=== PATIENT | female | born 1995 | race Caucasian/White ===

== ENCOUNTER 2016-11-09 17:12 | Emergency (ER) | payer BC, MEDICAID, OTHER ==
[~2016-11-09] VITALS: Ht 157.5 cm; Wt 78.8 kg
[~2016-11-09 17:12] MED LIST: BENZ100C70 PO; D-ME473S18 PO; IBUP-1542 PO; PREN1TAB49
[2016-11-09 17:13] VITALS: Ht 157.5 cm; Wt 78.8 kg
--- NOTE | 2016-11-09 18:03 | ERD ---
ER Documentation Chief Complaint Date/Time DATE: 11/09/16 TIME: 18:02 Chief Complaint RIGHT BREAST LUMP X 2 DAYS HPI This 21-year-old female presents to emergency department for evaluation of right lateral breast lump with intermitted pain, patient denies any discharge, erythema, reports she has had symptoms for the last 8 months. 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 Has had no exacerbation or change in symptoms came to emergency department today because she keeps forgetting to get it checked out. Patient denies any history of breast cancer in her family. Denies that she drinks coffee or has history of fibrous breast ROS All systems reviewed and are negative except as per history of present illness. Medications Home Meds Active Scripts Ibuprofen* (Ibuprofen*) 600 Mg Tablet, 600 MG PO Q6 for 3 Days, TAB Prov:MARICRUZ JOHNSON 01/06/16 Benzonatate* (Tessalon Perle*) 100 Mg Capsule, 100 MG PO Q8H Y for COUGH for 3 Days, CAP Prov:MARICRUZ JOHNSON 01/06/16 Dextromethorphan Hb-Promethazine Hcl (Promethazine DM Syrup) 473 Ml Syrup, 10 ML PO Q6H Y for COUGH, #4 OZ Prov:MARICRUZ JOHNSON 01/06/16 Ibuprofen* (Motrin*) 600 Mg Tab, 600 MG PO Q6H Y for PAIN AND OR ELEVATED TEMP, #30 Prov:CLAUS KASPER NP 09/18/14 Reported Medications Vits W-Ca,Fe,Fa(<1MG) () 1 Tab Tablet 04/30/12 Allergies Allergies: Coded Allergies: No Known Drug Allergies (Verified Allergy, Mild, 01/06/16) PMhx/Soc Medical and Surgical Hx: pt denies Medical Hx, pt denies Surgical Hx History of Surgery: No Anesthesia Reaction: No Hx Neurological Disorder: No Hx Respiratory Disorders: No Hx Cardiac Disorders: No Hx Psychiatric Problems: No Hx Miscellaneous Medical Probl: No Hx Alcohol Use: Yes (socially) Hx Substance Use: No Hx Tobacco Use: No Smoking Status: Never smoker Physical Exam Vitals Vital Signs Date Time Temp Pulse Resp B/P Pulse Ox O2 Delivery O2 Flow Rate FiO2 11/09/16 17:13 98.2 74 18 135/90 99 Vitals stable, triage notes reviewed Physical Exam Const: Well-nourished well-appearing in no acute distress Head: Atraumatic Eyes: Normal Conjunctiva, PERRLA, EOMI ENT: Normal External Ears, Nose and Mouth, mucous membranes moist. Neck: Full range of motion..~ No meningismus. Resp: Respirations even and unlabored, no respiratory distress Breast exam; contour is smooth, breasts are symmetric without retraction or bulging. There is a palpable mass on right lateral breast between 8 and 9:00. Nipples are everted without discharge, no axillary lymph nodes palpable. Cardio: Regular rate and rhythm, no murmurs Abd: Soft, non tender, non distended. Normal bowel sounds Skin: Back: Ext: Neur: Awake and alert Psych: Normal Mood and Affect Results 24 hrs Current Medications Medications (Trade) Dose Ordered Sig/Shreya Route PRN Reason Start Time Stop Time Status Last Admin Dose Admin Acetaminophen (Tylenol Tab) 650 mg ONCE ONCE PO 11/09/16 18:30 11/09/16 18:31 DC 11/09/16 18:40 Departure Diagnosis: Primary Impression: Breast mass, right Condition: Good Patient Instructions: Breast Mass, Uncertain Cause Referrals: RESPIRATORY CARE INSTRUCTOR REFERRAL LIST Additional Instructions: Thank you for for coming to [facility] for your care today. Please ask your nurse or provider if you have questions about your care today and do not leave until all your questions have been answered. Please use any medications given as directed and follow-up with your doctor (or the doctor you were referred to) in the next 2-3 days. If you do not have a primary care doctor you may follow up at the [facility] [place], [place] (listed below). You may also use motrin and tylenol as needed for fever and/or pain unless instructed otherwise by your provider or nurse. Indications for more urgent follow-up have been discussed, but you may return to the Emergency Department at ANY time for any worrisome or worsening symptoms. If you have abdominal pain, please know that no test or exam you received is perfect and you should follow up within 8 hours for continued pain. If you had any imaging studies today, such as an X-Ray or CT Scan, these studies will be reviewed later by a radiologist. You will be called if there are important findings that were not identified today, so make sure the contact information you provided at registration is correct. If you received any narcotic pain control medicine today, such as Vicodin, Morphine or Dilaudid, your coordination and judgment may be affected for a number of hours. Please do not drive or operate heavy machinery, and you may want someone to assist you at home. If you were given a prescription for narcotic medication, be aware that it is very addictive- use sparingly and only if necessary. DANA MORALES Nov 09, 2016 18:03
[2016-11-09] MEDS ORDERED: ACETAMINOPHEN 325 MG TAB PO ONE (18:30)
--- NOTE | 2016-11-09 19:59 | RADRPT ---
PROCEDURE: Right breast ultrasound. CLINICAL INDICATION: Right breast palpable lesion. TECHNIQUE: High-resolution sonography of the right breast was performed in the axial and sagittal planes. COMPARISON: No prior study is available for comparison. FINDINGS: At the site of the palpable lesion in the right breast 8-9 o'clock position, there is a solid mass m easuring 2.7 x 1.3 x 2.7 cm. The mass has smooth margins. The breast parenchyma is otherwise unremarkable. IMPRESSION: 1. Solid mass measuring 2.7 x 1.3 x 2.7 cm at the site of the palpable lesion in the right breast 8 9 o'clock position. This is probably benign. 2. Any further management regarding the palpable lesion should be based upon clinical grounds. RPTAT: QQ .Blake Cabrera MD, Date Time Electronically viewed and signed by .Blake Cabrera MD, on 11/09/2016 19:58 .R/
== END 2016-11-09 20:51 | disposition home or self-care (01) ==
LOC: FTE 17:12
DX: N63 Unspecified lump in breast (principal)
CPT/HCPCS: 76642; Z7502; Z7610

== ENCOUNTER 2018-01-09 15:50 | Emergency (ER) | END 2018-01-09 21:18 | disposition home or self-care (01) ==

== ENCOUNTER 2018-09-30 09:53 | Emergency (ER) | payer OTHER ==
[~2018-09-30] VITALS: Ht 162.6 cm; Wt 73.4 kg
[~2018-09-30 09:53] MED LIST changes: +ACET500C5 PO; +BENZ-6 PO; -BENZ100C70 PO; +CEPH-443 PO; +METO10TA92 PO
[2018-09-30 09:56] VITALS: Ht 162.6 cm; Wt 73.4 kg
[2018-09-30] MEDS ORDERED: ONDANSETRON (ODT) 4 MG TAB ODT STA (10:40)
[2018-09-30] MEDS ORDERED: IBUP-1542 PO (10:41)
[2018-09-30] MEDS ORDERED: ONDA4TAB14 PO (10:41)
[2018-09-30] MEDS ORDERED: AMOX500C2 PO (10:42)
--- NOTE | 2018-09-30 10:43 | ERD ---
ER Documentation Chief Complaint Chief Complaint SORE THROAT X 3 DAYS HPI 23-year-old female presents the ED for sore throat x3 days. Reports that it is so painful that is difficult for her to eat and sleep. She also reports nasal congestion, rhinorrhea with clear discharge, and nausea and vomiting this morning. She still feels nauseated during her ED stay. Denies any recorded fevers but reports chills and body aches throughout the night. Denies any sick contacts or recent travel. She reports that her sore throat is 6 out of 10 intensity and does not radiate.. Denies any abdominal pain or headaches at this time. Has taken TheraFlu with no relief of her symptoms. ROS All systems reviewed and are negative except as per history of present illness. Medications Home Meds Active Scripts Amoxicillin* (Amoxicillin*) 500 Mg Cap, 500 MG PO BID for 10 Days, CAP Prov:MARIIA DE LA PAZ PA-C 09/30/18 Ibuprofen* (Motrin*) 600 Mg Tab, 600 MG PO Q6H PRN for PAIN AND OR ELEVATED TEMP, #30 TAB Prov:MARIIA DE LA PAZ PA-C 09/30/18 Ondansetron (Ondansetron Odt) 4 Mg Tab.rapdis, 4 MG PO Q6H PRN for NAUSEA AND/OR VOMITING, #10 TAB Prov:MARIIA DE LA PAZ PA-C 09/30/18 Acetaminophen* (Tylophen*) 500 Mg Capsule, 1 CAP PO Q6H PRN for PAIN AND OR ELEVATED TEMP, #20 CAP Prov:GAGAN CARDOZO PA-C 01/09/18 Metoclopramide* (Reglan*) 10 Mg Tablet, 10 MG PO Q6 PRN for NAUSEA AND/OR VOMITING, #10 TAB Prov:GAGAN CARDOZO PA-C 01/09/18 Cephalexin* (Keflex*) 500 Mg Capsule, 500 MG PO QID for 7 Days, CAP Prov:GAGAN CARDOZO PA-C 01/09/18 Ibuprofen* (Ibuprofen*) 600 Mg Tablet, 600 MG PO Q6 for 3 Days, TAB Prov:MARICRUZ JOHNSON 01/06/16 Benzonatate* (Tessalon Perle*) 100 Mg Capsule, 100 MG PO Q8H PRN for COUGH for 3 Days, CAP Prov:MARICRUZ JOHNSON 01/06/16 Dextromethorphan Hb-Promethazine Hcl (Promethazine DM Syrup) 473 Ml Syrup, 10 ML PO Q6H PRN for COUGH, #4 OZ Prov:MARICRUZ JOHNSON 01/06/16 Ibuprofen* (Motrin*) 600 Mg Tab, 600 MG PO Q6H PRN for PAIN AND OR ELEVATED TEMP, #30 Prov:CLAUS KASPER NP 09/18/14 Reported Medications Vits W-Ca,Fe,Fa(<1MG) () 1 Tab Tablet 04/30/12 Allergies Allergies: Coded Allergies: No Known Drug Allergies (Verified Allergy, Mild, 09/30/18) PMhx/Soc History of Surgery: No Anesthesia Reaction: No Hx Neurological Disorder: No Hx Respiratory Disorders: No Hx Cardiac Disorders: No Hx Psychiatric Problems: No Hx Miscellaneous Medical Probl: No Hx Alcohol Use: Yes (socially) Hx Substance Use: No Hx Tobacco Use: No FmHx Family History: No diabetes Physical Exam Vitals Vital Signs Date Temp Pulse Resp B/P (MAP) Pulse Ox O2 O2 Flow FiO2 Time Delivery Rate 09/30/18 99.4 112 16 129/84 97 09:56 (99) Physical Exam Const: No acute distress Head: Atraumatic Eyes: Normal Conjunctiva ENT: Normal External Ears, Nose Mouth: Throat slightly erythematous with no exudates Neck: Full range of motion Resp: Clear to auscultation bilaterally Cardio: Regular rate and rhythm Abd: Soft, non tender, non distended. Skin: No rashes Back: No midline tenderness Ext: No cyanosis, or edema Neur: Awake and alert Psych: Normal Mood and Affect Results 24 hrs Current Medications Medications Dose Sig/Shreya Start Time Status Last (Trade) Ordered Route PRN Stop Time Admin Dose Reason Admin Ondansetron 4 mg ONCE STAT 09/30/18 DC 09/30/18 HCl (Zofran ODT 10:40 10:54 Odt) 09/30/18 10:41 Procedures/MDM ED COURSE: The patient was stable throughout ED course. I kept the patient informed of laboratory and diagnostic imaging results throughout the ED course. MEDICATIONS GIVEN: Zofran Patient tolerated medication well with no adverse reactions. Patient reported improvement in pain. MEDICAL DECISION MAKING: Patient is a 23-year-old female complaining of sore throat x 3 days. Patient's physical exam is consistent with presumed strep pharyngitis. Based on [facility] Criteria, patient has reported feeling warm at home with chills, no cough. Patient is appropriate for outpatient antibiotics. Patient's physical exam include lungs which were clear to auscultation and a normal pulse oximetry. No tenderness to palpation of tragus or mastoid. Low suspicion for mastoiditis, otitis externa, otitis media. Patient is speaking in full sentences. There is a low suspicion for pneumonia, epiglottitis, croup, sinusitis, peritonsillar abscess, hands foot mouth disease, scarlet fever, kawasaki disease, retropharyngeal abscess, meningitis, sepsis, acute abdomen or other emergent conditions. Vital signs were reviewed. Patient is afebrile. Patient was not hypoxic. Patient was hemodynamically stable. PRESCRIPTION: Amoxicillin, Motrin, Zofran DISCHARGE: At this time, patient is stable for discharge and outpatient management. I have instructed the patient to follow-up with his/her primary care physician in 1-2 days. I have discussed with the patient the possibility of needing to see a specialist for further workup and imaging studies if symptoms persist. I have instructed the patient to promptly return to the ER for any new or worsening symptoms including increased pain, fever, nausea, vomiting, weakness or LOC. The patient and/or family expressed understanding of and agreement with this plan. All questions were answered. Home care instructions were provided. Disclaimer: Inadvertent spelling and grammatical errors are likely due to EHR/dictation software use and do not reflect on the overall quality of patient care. Also, please note that the electronic time recorded on this note does not necessarily reflect the actual time of the patient encounter. Departure Diagnosis: Primary Impression: Sore throat Condition: Fair Patient Instructions: Self-Care for Sore Throats Referrals: COMMUNITY CLINICS YOU HAVE RECEIVED A MEDICAL SCREENING EXAM AND THE RESULTS INDICATE THAT YOU DO NOT HAVE A CONDITION THAT REQUIRES URGENT TREATMENT IN THE EMERGENCY DEPARTMENT. FURTHER EVALUATION AND TREATMENT OF YOUR CONDITION CAN WAIT UNTIL YOU ARE SEEN IN YOUR DOCTORS OFFICE WITHIN THE NEXT 1-2 DAYS. IT IS YOUR RESPONSIBILITY TO MAKE AN APPOINTMENT FOR FOLOW-UP CARE. IF YOU HAVE A PRIMARY DOCTOR --you should call your primary doctor and schedule an appointment IF YOU DO NOT HAVE A PRIMARY DOCTOR YOU CAN CALL OUR PHYSICIAN REFERRAL HOTLINE AT IF YOU CAN NOT AFFORD TO SEE A PHYSICIAN YOU CAN CHOSE FROM THE FOLLOWING [facility] [address] [facility] [address] [facility] [address] [facility] [address] [facility] [address] [facility]. [facility] [address] [facility]. [facility] YOU HAVE RECEIVED A MEDICAL SCREENING EXAM AND THE RESULTS INDICATE THAT YOU DO NOT HAVE A CONDITION THAT REQUIRES URGENT TREATMENT IN THE EMERGENCY DEPARTMENT. FURTHER EVALUATION AND TREATMENT OF YOUR CONDITION CAN WAIT UNTIL YOU ARE SEEN IN YOUR DOCTORS OFFICE WITHIN THE NEXT 1-2 DAYS. IT IS YOUR RESPONSIBILITY TO MAKE AN APPOINTMENT FOR FOLOW-UP CARE. IF YOU HAVE A PRIMARY DOCTOR --you should call your primary doctor and schedule and appointment IF YOU DO NOT HAVE A PRIMARY DOCTOR YOU CAN CALL OUR PHYSICIAN REFERRAL HOTLINE AT . IF YOU CAN NOT AFFORD TO SEE A PHYSICIAN YOU CAN CHOSE FROM THE FOLLOWING [facility]: [facility] [address] [place] [address] [facility] [address] [place] [address] [facility] [address] [place] [address] Additional Instructions: Call your primary care doctor TOMORROW for an appointment during the next 1-2 days.See the doctor sooner or return here if your condition worsens before your appointment time. MARIIA DE LA PAZ PA-C Sep 30, 2018 10:43
[2018-09-30 10:58] VITALS: BP 122/74; PULSE 100; RESP 16
== END 2018-09-30 11:00 | disposition home or self-care (01) ==
LOC: FTE 09:53
DX: J02.9 Acute pharyngitis, unspecified (principal)
CPT/HCPCS: Z7502; Z7610; 99283

== ENCOUNTER 2018-11-09 10:31 | Emergency (ER) | payer OTHER ==
[~2018-11-09] VITALS: Ht 160 cm; Wt 80.0 kg
[~2018-11-09 10:31] MED LIST changes: +AMOX500C2 PO; +DICY10CA40 PO; +ONDA4TAB14 PO; +ONDA8TAB14 PO
[2018-11-09 10:33] VITALS: BP 143/80; PULSE 110; RESP 18; Ht 160 cm; Wt 80.0 kg
[2018-11-09] MEDS ORDERED: KETOROLAC 30 MG INJ IV STA (11:06)
[2018-11-09] MEDS ORDERED: ONDANSETRON 4 MG INJ IV STA (11:06)
[2018-11-09] MEDS ORDERED: SOD CHLORIDE 0.9% 1,000 ML IV STA (11:06)
[2018-11-09] MEDS ORDERED: BELLADONNA/PHENOBARBITAL TAB PO STA (11:06)
[2018-11-09] MEDS ORDERED: LIDOCAINE/MYLANTA 40 ML BTL PO STA (11:06)
[2018-11-09] MEDS ORDERED: FAMOTIDINE 20 MG INJ IV STA (11:06)
[2018-11-09] MEDS ORDERED: morphine 2 MG INJ IV STA (11:06)
--- NOTE | 2018-11-09 11:19 | ERD ---
ER Documentation Chief Complaint Chief Complaint AP WITH VOMITING SINCE YESTERDAY HPI 23-year-old female presents with complaint of abdominal pain, diarrhea, vomiting since yesterday. States of abdominal pain is mostly epigastric. Patient denies fevers. Patient is ambulatory. Denies fevers, constipation, hematochezia, hematemesis, biliary emesis, right lower quadrant pain, recent travel, shortness of breath, chest pain, diaphoresis, dysphagia, weight loss, polyuria, diabetes, history of atherosclerosis. ROS All systems reviewed and are negative except as per history of present illness. Medications Home Meds Active Scripts Acetaminophen* (Tylophen*) 500 Mg Capsule, 2 CAP PO Q8H PRN for PAIN AND OR ELEVATED TEMP, #20 CAP Prov:RACIEL RAM 11/09/18 Ondansetron (Ondansetron Odt) 8 Mg Tab.rapdis, 8 MG PO Q6H PRN for NAUSEA AND/OR VOMITING, #10 TAB Prov:RACIEL RAM 11/09/18 Dicyclomine HCl (Dicyclomine HCl) 10 Mg Capsule, 10 MG PO TID PRN for ABDOMINAL CRAMPING, #20 CAP Prov:RACIEL RAM 11/09/18 Amoxicillin* (Amoxicillin*) 500 Mg Cap, 500 MG PO BID for 10 Days, CAP Prov:MARIIA DE LA PAZ PA-C 09/30/18 Ibuprofen* (Motrin*) 600 Mg Tab, 600 MG PO Q6H PRN for PAIN AND OR ELEVATED TEMP, #30 TAB Prov:MARIIA DE LA PAZ PA-C 09/30/18 Ondansetron (Ondansetron Odt) 4 Mg Tab.rapdis, 4 MG PO Q6H PRN for NAUSEA AND/OR VOMITING, #10 TAB Prov:MARIIA DE LA PAZ PA-C 09/30/18 Acetaminophen* (Tylophen*) 500 Mg Capsule, 1 CAP PO Q6H PRN for PAIN AND OR ELEVATED TEMP, #20 CAP Prov:GAGAN CARDOZO PA-C 01/09/18 Metoclopramide* (Reglan*) 10 Mg Tablet, 10 MG PO Q6 PRN for NAUSEA AND/OR VOMITING, #10 TAB Prov:GAGAN CARDOZO PA-C 01/09/18 Cephalexin* (Keflex*) 500 Mg Capsule, 500 MG PO QID for 7 Days, CAP Prov:LOTTIE CARDOZOIE Shannon ALAS 01/09/18 Ibuprofen* (Ibuprofen*) 600 Mg Tablet, 600 MG PO Q6 for 3 Days, TAB Prov:MARICRUZ JOHNSON Arelis 01/06/16 Benzonatate* (Tessalon Perle*) 100 Mg Capsule, 100 MG PO Q8H PRN for COUGH for 3 Days, CAP Prov:MARICRUZ JOHNSON C 01/06/16 Dextromethorphan Hb-Promethazine Hcl (Promethazine DM Syrup) 473 Ml Syrup, 10 ML PO Q6H PRN for COUGH, #4 OZ Prov:MARICRUZ JOHNSON 01/06/16 Ibuprofen* (Motrin*) 600 Mg Tab, 600 MG PO Q6H PRN for PAIN AND OR ELEVATED TEMP, #30 Prov:CLAUS KASPER NP 09/18/14 Reported Medications Vits W-Ca,Fe,Fa(<1MG) () 1 Tab Tablet 04/30/12 Allergies Allergies: Coded Allergies: No Known Drug Allergies (Verified Allergy, Mild, 09/30/18) PMhx/Soc Medical and Surgical Hx: pt denies Medical Hx, pt denies Surgical Hx History of Surgery: No Anesthesia Reaction: No Hx Neurological Disorder: No Hx Respiratory Disorders: No Hx Cardiac Disorders: No Hx Psychiatric Problems: No Hx Miscellaneous Medical Probl: No Hx Alcohol Use: Yes (socially) Hx Substance Use: No Hx Tobacco Use: No Smoking Status: Never smoker FmHx Family History: No diabetes, No coronary disease, No other Physical Exam Vitals Vital Signs Date Temp Pulse Resp B/P (MAP) Pulse Ox O2 O2 Flow FiO2 Time Delivery Rate 11/09/18 98.5 110 18 143/80 99 10:33 (101) Physical Exam Const: No acute distress Head: Atraumatic Eyes: Normal Conjunctiva ENT: Normal External Ears, Nose and Mouth. Neck: Full range of motion. No meningismus. Resp: Clear to auscultation bilaterally Cardio: Regular rate and rhythm, no murmurs Abd: Tenderness palpation upper right quadrant. Otherwise soft, non tender, non distended. Normal bowel sounds. Negative McBurney's. Able to jump up and down. Skin: No petechiae or rashes Back: No midline or flank tenderness Ext: No cyanosis, or edema Neur: Awake and alert Psych: Normal Mood and Affect Result Diagram: 11/09/18 1114 11/09/18 1114 Results 24 hrs Laboratory Tests Test 11/09/18 11:14 11/09/18 11:22 White Blood Count 12.7 10^3/ul Red Blood Count 4.60 10^6/ul Hemoglobin 15.4 g/dl Hematocrit 45.5 % Mean Corpuscular Volume 98.9 fl Mean Corpuscular Hemoglobin 33.5 pg Mean Corpuscular Hemoglobin Concent 33.8 g/dl Red Cell Distribution Width 11.6 % Platelet Count 243 10^3/UL Mean Platelet Volume 10.6 fl Immature Granulocytes % 0.200 % Neutrophils % 79.7 % Lymphocytes % 12.6 % Monocytes % 5.5 % Eosinophils % 1.8 % Basophils % 0.2 % Nucleated Red Blood Cells % 0.0 /100WBC Immature Granulocytes # 0.030 10^3/ul Neutrophils # 10.2 10^3/ul Lymphocytes # 1.6 10^3/ul Monocytes # 0.7 10^3/ul Eosinophils # 0.2 10^3/ul Basophils # 0.0 10^3/ul Nucleated Red Blood Cells # 0.0 10^3/ul Urine Color YELLOW Urine Clarity CLEAR Urine pH 5.0 Urine Specific [place] 1.016 Urine Ketones NEGATIVE mg/dL Urine Nitrite NEGATIVE mg/dL Urine Bilirubin NEGATIVE mg/dL Urine Urobilinogen NEGATIVE mg/dL Urine Leukocyte Esterase NEGATIVE [place]/ul Urine Microscopic RBC 1 /HPF Urine Microscopic WBC 1 /HPF Urine Hemoglobin 3+ mg/dL Urine Glucose NEGATIVE mg/dL Urine Total Protein NEGATIVE mg/dl Sodium Level 143 mmol/L Potassium Level 4.0 mmol/L Chloride Level 105 mmol/L Carbon Dioxide Level 28 mmol/L Anion Gap 10 Blood Urea Nitrogen 11 mg/dl Creatinine 0.90 mg/dl Est Glomerular Filtrat Rate mL/min > 60 mL/min Glucose Level 99 mg/dl Calcium Level 9.6 mg/dl Total Bilirubin 0.4 mg/dl Direct Bilirubin 0.00 mg/dl Indirect Bilirubin 0.4 mg/dl Aspartate Amino Transf (AST/SGOT) 20 IU/L Alanine Aminotransferase (ALT/SGPT) 17 IU/L Alkaline Phosphatase 66 IU/L Total Protein 7.1 g/dl Albumin 4.4 g/dl Globulin 2.70 g/dl Albumin/Globulin Ratio 1.62 Lipase 69 U/L POC Beta HCG, Qualitative NEGATIVE Current Medications Medications Dose Sig/Shreya Start Time Status Last (Trade) Ordered Route PRN Stop Time Admin Dose Reason Admin Sodium 1,000 ml @ Q1H STAT 11/09/18 DC 11/09/18 Chloride 1,000 mls/hr IV 11:06 11/09/18 11:19 12:05 Morphine 2 mg ONCE STAT 11/09/18 DC 11/09/18 Sulfate IV 11:06 11/09/18 11:19 (morphine) 11:09 Ondansetron 4 mg ONCE STAT 11/09/18 DC 11/09/18 HCl (Zofran IV 11:06 11/09/18 11:19 Inj) 11:09 Famotidine 20 mg ONCE STAT 11/09/18 DC 11/09/18 (Pepcid Iv) IV 11:06 11/09/18 11:19 11:09 40 ml ONCE STAT 11/09/18 DC 11/09/18 Miscellaneous PO 11:06 11/09/18 11:26 Medication 11:09 (Gi Cocktail (2)) Belladonna/ 2 tab ONCE STAT 11/09/18 DC 11/09/18 Phenobarbital PO 11:06 11/09/18 11:18 () 11:09 Ketorolac 30 mg ONCE STAT 11/09/18 DC 11/09/18 Tromethamine IV 11:06 11/09/18 11:26 (Toradol) 11:09 IV Flush 10 ml STK-MED 11/09/18 DC 11/09/18 (NS 10 ml) ONCE .ROUTE 12:25 11/09/18 12:33 12:26 Sodium 100 ml @ ud STK-MED 11/09/18 DC 11/09/18 Chloride ONCE .ROUTE 12:25 11/09/18 12:33 12:26 Iohexol 150 ml STK-MED 11/09/18 DC 11/09/18 (Omnipaque ONCE .ROUTE 12:25 11/09/18 12:33 300mg/ ml) 12:26 Procedures/MDM DIAGNOSTIC IMAGING REPORT Patient: KAMRYN SCHULTZ : 1995 Age: 23 Sex: F MR #: [id number] DOS: 11/09/18 1216 Ordering MD: RACIEL RAM Location: [facility] Room/Bed: PROCEDURE: CT Abdomen and Pelvis with contrast CLINICAL INDICATION: Epigastric abdominal pain TECHNIQUE: Transaxial computed tomographic images of the abdomen and pelvis were obtained following the uneventful administration of 80 mL Omnipaque-300 intravenous contrast according to standard protocol. Coronal and sagittal reformatted images were provided. DICOM images are available. Radiation dose: CTDIvol (mGy) = 12.94; total DLP (mGy.cm) = 730.42. One or more of the following dose reduction techniques were used: - Automated exposure control. - Adjustment of the mA and/or kV according to patient size. - Use of iterative reconstruction technique. COMPARISON: None. FINDINGS: The visualized lung bases are clear. There is no pleural effusion. The liver, gallbladder, spleen, pancreas, adrenal glands, and kidneys are normal. The stomach is nondistended. There is no evidence of intestinal obstruction. Multiple loops of small bowel in the mid to lower abdomen are fluid filled with mild mucosal hyperenhancement. The appendix is normal. There is no free intraperitoneal air or fluid. There is no suspicious mesenteric or retroperitoneal lymphadenopathy. The abdominal aorta is of normal diameter. Urinary bladder is normal. The uterus is within normal limits. Small amount of free pelvic fluid is identified. The osseous structures of the abdomen and pelvis are intact. IMPRESSION: 1. Multiple fluid-filled loops of small bowel in the mid to lower abdomen with mucosal hyperenhancement. This is nonspecific and may represent enteritis in the appropriate clinical setting. 2. Small amount of free pelvic fluid which may be physiologic. RPTAT: [facility] Physician Vlad Date Time Electronically viewed and signed by Physician Vlad on 11/09/2018 12:49 RF/ CC: RACIEL RAM [id number] DIAGNOSTIC IMAGING REPORT Patient: KAMRYN SCHULTZ : 1995 Age: 23 Sex: F MR #: [id number] DOS: 11/09/18 1106 Ordering MD: RACIEL RAM Location: [facility] Room/Bed: PROCEDURE: US Abdomen (right upper quadrant). CLINICAL INDICATION: Abdominal pain. TECHNIQUE: Multiple real-time longitudinal and transverse images of the right upper quadrant of the abdomen were acquired utilizing a curved array transducer. Images were reviewed on a high-resolution PACS workstation. COMPARISON: None FINDINGS: The liver is borderline enlarged at 17.2 cm with a slightly coarsened, heterogeneous echotexture without focal mass or intrahepatic biliary dilatation. There is normal hepatopedal flow within the main portal vein. The gallbladder is well displayed without filling defects or wall thickening. The common bile duct measures 3.8 mm in maximal dimension. The visualized portions of the pancreas are unremarkable with obscuration of the tail of the pancreas. No free fluid is identified. The right kidney measures 9.9 cm in length. There is normal echogenicity within the right kidney. There is no perinephric fluid collection. No hydronephrosis, mass, or calculus is seen. IMPRESSION: 1. Borderline hepatomegaly with a slightly coarsened echotexture which may reflect mild steatosis. RPTAT: [facility] Physician Benson Date Time Electronically viewed and signed by Physician Benson on 11/09/2018 11:51 JH/ CC: RACIEL RAM [id number] MDM: Patient was given IV fluids and pain medication as well as Zofran in the ER which was also her symptoms. Patient had a mildly elevated white count however I results within normal limits. Gallbladder ultrasound was also within normal limits. Risks and benefits of doing a CT abdomen with contrast were discussed with the patient and patient says she would like to have the CT done. CT was done and results showed enteritis but no emergent pathology. Patient was discharged with Zofran and Bentyl. I have low suspicion for acute coronary syndrome, AAA, mesenteric ischemia, lower lobe pneumonia, DKA, bowel perforation, cholecystitis, choledocholithiasis, ascending cholangitis, hepatic abscess, pancreatitis, PUD, splenic rupture, diverticulitis, pyelonephritis, nephrolithiasis, appendicitis, , ectopic , PID, ovarian torsion or tubo-ovarian abscess At this time, patient is stable for discharge and outpatient management. I have instructed the patient to follow-up with his/her primary care physician in 1 day. I have discussed with the patient the possibility of needing to see a specialist for further workup and imaging studies if symptoms persist. I have instructed the patient to promptly return to the ER for any new or worsening symptoms including but not limited to increased pain, fever, nausea, vomiting, weakness or LOC. The patient and/or family expressed understanding of and agreement with this plan. All questions were answered. Home care instructions were provided. DISCLAIMER: Inadvertent spelling and grammatical errors are likely due to EHR/dictation software use and do not reflect on the overall quality of patient care. Also, please note that the electronic time recorded on this note does not necessarily reflect the actual time of the patient encounter. . Departure Diagnosis: Primary Impression: Gastroenteritis Condition: Stable RACIEL RAM Nov 09, 2018 11:19
[2018-11-09] MEDS ORDERED: IOHEXOL 300MG/ML 150 ML BTL ONE (12:25)
[2018-11-09] MEDS ORDERED: SOD CHLORIDE 0.9% 100 ML ONE (12:25)
== END 2018-11-09 13:11 | disposition home or self-care (01) ==
LOC: FTE 10:31
DX: K52.9 Noninfective gastroenteritis and colitis, unspecified (principal)
CPT/HCPCS: 74177; 76705; 80053; 81001; 81025; 83690; 85025; J1885; J2270; J2405; J7030; Q9967; Z7610; 36415; 96361; 96374; 96375